=== PATIENT | female | born 1975 | race American Indian/Alaskan Native ===

== ENCOUNTER 2019-02-10 06:11 | Day surgery (SDC) | payer BC, MEDICARE ==
[2019-02-10] MEDS ORDERED: WATER FOR IRRIG STERILE IR ONE (07:34)
[2019-02-10] MEDS ORDERED: WATER FOR IRRIG STERILE ONE (07:34)
[2019-02-10] MEDS ORDERED: ZOFRAN ONE ×3 (07:53→10:21)
[2019-02-10] MEDS ORDERED: PEPCID IV ONE (07:55)
[2019-02-10] MEDS ORDERED: QUELICIN ONE (07:56)
[2019-02-10] MEDS ORDERED: DIPRIVAN 10 MG/ML IV ONE (07:56)
[2019-02-10] MEDS ORDERED: XYLOCAINE MPF 2% ONE (07:58)
[2019-02-10] MEDS ORDERED: SUBLIMAZE ONE (07:58)
[2019-02-10] MEDS: NACL 0.9% 1000 ML 1,000 ML IV SCH ×2 (08:06→12:04)
--- NOTE | 2019-02-10 08:06 | Anesthesia Day of Surgery ---
Anesthesia Day of Surgery - Day of Surgery Patient Examined: Yes Patient H&P Reviewed: Yes Patient is NPO: Yes Beta Blockers: No
--- NOTE | 2019-02-10 08:08 | Anesthesia Consultation ---
Anesthesia Consult and Med Hx Date of service: 02/10/19 - Airway Anesthetic Teeth Evaluation: Good ROM Head & Neck: Adequate Mental/Hyoid Distance: Adequate Intubation Access Assessment: Probably Good - Pulmonary Exam CTA: Yes - Cardiac Exam Cardiac Exam: No Murmur - Pre-Operative Health Status ASA Pre-Surgery Classification: ASA2 Proposed Anesthetic Plan: General - Pulmonary Hx Asthma: Yes SOB: Yes - Endocrine Hx Hypothyroidism: Yes - Other Systems Hx Obesity: Yes
[2019-02-10] MEDS ORDERED: ZEMURON IV ONE (09:19)
[2019-02-10] MEDS ORDERED: DECADRON ONE (09:19)
[2019-02-10] MEDS ORDERED: PROAIR IH ONE (09:19)
[2019-02-10] MEDS ORDERED: ROBINUL ONE (09:21)
--- NOTE | 2019-02-10 09:47 | Procedure Note ---
Date of procedure: 02/10/19 Pre-op diagnosis: Abdominal Pain/ Nausea/ Vomiting/H/O Ischemic Colitis Post-op diagnosis: other (Mild, Distal Esophagitis/Gastritis/R/O Celiac disease/R/O Eosinophilic esophagitis/ No evidence of gastroparesis at present/ S/P Subtotal Colectomy (normal Colon Mucosa)/Moderately,Large External Hemorrhoids) Procedure: EGD with Biopsy/Flexible Sigmoidoscopy [place] [facility] [place]: TORRIE SOTELO Estimated blood loss: minimal Pathology: list Specimen disposition: to lab Condition: stable Disposition: same day (Avoid aspirin and NSAID for 5 days. Follow up in 1 to 2 weeks ([phone]).)
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
[2019-02-10] MEDS ORDERED: DILAUDID ONE (10:34)
[2019-02-10] MEDS ORDERED: BENADRYL IV ONE (10:44)
[2019-02-10] MEDS ORDERED: BENADRYL ONE (10:50)
[2019-02-10] MEDS ORDERED: SOLU-Medrol IV ONE (11:00)
[2019-02-10 11:11] LABS: Blood Urea Nitrogen 7 mg/dL (7-17)
[2019-02-10 12:01] VITALS: BP 105/67
--- NOTE | 2019-02-10 15:08 | Cat Scan Report ---
PROCEDURE: CT ABDOMEN W CON TECHNIQUE: CT of the abdomen was performed. Oral contrast was administered. 100 cc Omnipaque 300 IV w as administered. Axial images and coronal and sagittal reformatted images were obtained. HISTORY: ABD PAIN, PANCREATITIS COMPARISON: None FINDINGS: There is some dependent atelectasis at the lung bases. The visualized liver, spleen, pancreas, adrenal glands and kidneys demonstrate no significant abnorma lity. There is no abdominal aortic aneurysm. There is no evidence for intestinal obstruction. The appendix is not visualized. There may be a small amount of free fluid in the pelvis although pelvis incompletely visualized. IMPRESSION: Possible small amount of pelvic free fluid although areas incompletely visualized. No significant abnormality otherwise seen. Specifically pancreas appears unremarkable. This document is electronically signed by Lauren Yip MD., February 10 2019 03:06:00 PM ET
== END 2019-02-10 06:12 | disposition home or self-care (01) ==
LOC: GIO 06:11
DX: K29.50 Unspecified chronic gastritis without bleeding (principal); K21.0 Gastro-esophageal reflux disease with esophagitis; R10.32 Left lower quadrant pain; K64.8 Other hemorrhoids; J45.909 Unspecified asthma, uncomplicated; E66.9 Obesity, unspecified; E03.9 Hypothyroidism, unspecified; K31.84 Gastroparesis; K85.90 Acute pancreatitis without necrosis or infection, unspecified; Z80.0 Family history of malignant neoplasm of digestive organs; Z93.3 Colostomy status; Z80.3 Family history of malignant neoplasm of breast; Z79.899 Other long term (current) drug therapy; Z79.84 Long term (current) use of oral hypoglycemic drugs; Z68.41 Body mass index [BMI] 40.0-44.9, adult; Z98.890 Other specified postprocedural states
CPT/HCPCS: 36415; 43239; 45378; 74160; 82565; 84520; 88305; 88342; J0330; J1100; J1170; J1200; J2405; J2704; J2920; J3010; J7030; Q9967